=== PATIENT | female | born 1985 | race American Indian/Alaskan Native ===

== ENCOUNTER 2019-02-04 21:50 | Emergency (ER) | payer SELFPAY ==
--- NOTE | 2019-02-04 22:36 | Emergency Department Report ---
Blank Doc - Documentation Documentation: 33-year-old female that presents with left knee pain. This initial assessment/diagnostic orders/clinical plan/treatment(s) is/are subject to change based on patient's health status, clinical progression and re- assessment by fellow clinical providers in the ED. Further treatment and workup at subsequent clinical providers discretion. Patient/guardians urged not to elope from the ED as their condition may be serious if not clinically assessed and managed. Initial orders include: 1- Patient sent to [facility] for further evaluation and treatment 2- xrays
--- NOTE | 2019-02-05 00:09 | XRay Report ---
LEFT KNEE 3 VIEW(S) INDICATION / CLINICAL INFORMATION: knee pain COMPARISON: None available. FINDINGS: BONES / JOINT(S): No acute fracture or subluxation. No significant arthritis. Small suprapatellar sheng nt effusion. SOFT TISSUES: Mild anterior soft tissue swelling. ADDITIONAL FINDINGS: None. Signer Name: Kimberlee Dietz MD Signed: 02/05/2019 12:05 AM Workstation Name: [id number]
--- NOTE | 2019-02-05 01:34 | Emergency Department Report ---
ED Extremity Problem HPI - General Chief complaint: Extremity Injury, Lower Stated complaint: L LEG PAIN/FACIAL SWELLING Time Seen by Provider: 02/04/19 22:35 Source: patient Mode of arrival: Ambulatory Limitations: Physical Limitation - History of Present Illness Initial comments: Patient is a 33-year-old -Citizen Of [place] female who presents to the ED with complaints of acute onset persistent severe left knee pain and swelling after she twisted her left knee when playing with her child about 6 hours ago. Patient states that the swelling and pain of the left knee has worsened. Patient states that she has also had persistent painful swelling left maxillary and mandibular jaw pain that radiates to the left ear due to swollen gums and premolar and molar toothaches for the last 1 week. Patient denies fever, chills, nausea, vomiting, dizziness, headache, chest pain, shortness of breath, sore throat, fall, traumatic injury or low back pain. MD Complaint: extremity pain (left knee), joint swelling (left knee), other (dental and gum pain) -: Sudden, hour(s) (6) Location: left, lower extremity (knee), knee (left) History of Same: No -: Yes arthralgia, No fever, No associated dyspnea, No associated chest pain Radiation: none Severity scale (0 -10): 7 Quality: aching, sharp, constant Consistency: constant Improves with: nothing Worsens with: weight bearing, walking, exertion, palpation Associated Symptoms: denies other symptoms, myalgias, arthralgias. denies: chest pain, shortness of breath, rash, other - Related Data Previous Rx's Medication Instructions Recorded Last Taken Type Acetaminophen/Codeine [Tylenol 1 tab PO Q6H PRN #12 tab 02/05/19 Unknown Rx /Codeine # 3 tab] Cyclobenzaprine [Flexeril] 10 mg PO Q8H PRN #15 tablet 02/05/19 Unknown Rx Ketorolac [Toradol] 10 mg PO Q8H PRN #20 tablet 02/05/19 Unknown Rx Penicillin V Potassium 500 mg PO Q6H #40 tablet 02/05/19 Unknown Rx Allergies Allergy/AdvReac Type Severity Reaction Status Date / Time No Known Allergies Allergy Unverified 02/04/19 22:39 ED Review of Systems ROS: Stated complaint: L LEG PAIN/FACIAL SWELLING Other details as noted in HPI Constitutional: denies: chills, fever Eyes: denies: eye pain, eye discharge, vision change ENT: dental pain, other (left mandibular and maxillary gum swelling). denies: ear pain, throat pain Respiratory: denies: cough, shortness of breath, wheezing Cardiovascular: denies: chest pain, palpitations Endocrine: no symptoms reported Gastrointestinal: denies: abdominal pain, nausea, diarrhea Genitourinary: denies: urgency, dysuria, discharge Musculoskeletal: joint swelling (left knee swelling), arthralgia. denies: back pain Skin: denies: rash, lesions Neurological: denies: headache, weakness, paresthesias Psychiatric: denies: anxiety, depression Hematological/Lymphatic: denies: easy bleeding, easy bruising ED Past Medical Hx - Past Medical History Previous Medical History?: No - Surgical History Additional Surgical History: c sect 5 - Social History Smoking Status: Never Smoker Substance Use Type: Alcohol, Marijuana - Medications Home Medications: Home Medications Medication Instructions Recorded Confirmed Last Taken Type Acetaminophen/Codeine [Tylenol 1 tab PO Q6H PRN #12 tab 02/05/19 Unknown Rx /Codeine # 3 tab] Cyclobenzaprine [Flexeril] 10 mg PO Q8H PRN #15 tablet 02/05/19 Unknown Rx Ketorolac [Toradol] 10 mg PO Q8H PRN #20 tablet 02/05/19 Unknown Rx Penicillin V Potassium 500 mg PO Q6H #40 tablet 02/05/19 Unknown Rx ED Physical Exam - General Limitations: Physical Limitation General appearance: alert, in no apparent distress - Head Head exam: Present: atraumatic, normocephalic, normal inspection - Eye Eye exam: Present: normal appearance, PERRL, EOMI Pupils: Present: normal accommodation - ENT ENT exam: Present: normal exam, mucous membranes moist, TM's normal bilaterally, normal external ear exam, other (swollen tender left maxillary and mandibular gums with tender premolar and molar teeth) - Neck Neck exam: Present: normal inspection, full ROM, lymphadenopathy - Respiratory Respiratory exam: Present: normal lung sounds bilaterally. Absent: respiratory distress, wheezes, rhonchi, stridor, chest wall tenderness, accessory muscle use, decreased breath sounds - Cardiovascular Cardiovascular Exam: Present: regular rate, normal rhythm, normal heart sounds. Absent: systolic murmur, diastolic murmur, rubs, gallop - GI/Abdominal GI/Abdominal exam: Present: soft, normal bowel sounds. Absent: tenderness, guarding, rebound, hyperactive bowel sounds, hypoactive bowel sounds - Extremities Exam Extremities exam: Present: normal inspection, full ROM, tenderness (palpable left knee tenderness with mild swelling), normal capillary refill - Back Exam Back exam: Present: normal inspection, full ROM. Absent: tenderness, CVA tenderness (R), CVA tenderness (L), muscle spasm, paraspinal tenderness - Neurological Exam Neurological exam: Present: alert, oriented X3, CN II-XII intact, normal gait, reflexes normal - Psychiatric Psychiatric exam: Present: normal affect, normal mood - Skin Skin exam: Present: warm, dry, intact, normal color. Absent: rash ED Course Vital Signs 02/04/19 02/05/19 21:59 01:56 Temperature 98.2 F 98.6 F Pulse Rate 89 89 Respiratory 18 16 Rate Blood Pressure 118/86 Blood Pressure 127/83 [Right] O2 Sat by Pulse 99 100 Oximetry ED Medical Decision Making - Radiology Data Radiology results: report reviewed, image reviewed Left knee x-ray shows no acute fractures or subluxations, except small left knee effusion and mild swelling. - Medical Decision Making This is a 33-year-old female who presented to the ED with left knee pain after twisting the left knee when playing with her son about 6 hours ago. In the ED, patient is alert and oriented 3 and is not in distress. Patient was treated for pain and left knee x-ray shows no acute fractures or subluxation but a small left knee effusion with mild soft tissue swelling. The left knee was splinted with Florian wrap and patient discharged home on medications. Patient was advised to follow-up with her primary care physician in 7-10 days for reevaluation. Patient was advised to return to the ED immediately if symptoms get worse. - Differential Diagnosis left knee sprain; left knee muscle strain; dental abscess; gingivitis Critical care attestation.: If time is entered above; I have spent that time in minutes in the direct care of this critically ill patient, excluding procedure time. ED Disposition Clinical Impression: Dental abscess, Acute gingivitis Sprain of left knee Qualifiers: Encounter type: initial encounter Involved ligament of knee: unspecified ligament Qualified Code(s): S83.92XA - Sprain of unspecified site of left knee, initial encounter Disposition: DC-01 TO HOME OR SELFCARE Is pt being admited?: No Does the pt Need Aspirin: No Condition: Stable Instructions: Knee Sprain (ED), Dental Abscess (ED), Gingivitis (ED) Additional Instructions: Take medications with food, drink plenty of fluids and follow-up with your primary care physician in 7-10 days for reevaluation. Return to the ED immediately symptoms get worse. Prescriptions: Cyclobenzaprine [Flexeril] 10 mg PO Q8H PRN #15 tablet PRN Reason: Muscle Spasm Penicillin V Potassium 500 mg PO Q6H #40 tablet Ketorolac [Toradol] 10 mg PO Q8H PRN #20 tablet PRN Reason: Pain Acetaminophen/Codeine [Tylenol /Codeine # 3 tab] 1 tab PO Q6H PRN #12 tab PRN Reason: Pain , Severe (7-10) Referrals: PRIMARY CARE, [Primary Care Provider] - 3-5 Days Forms: Work/School Release Form(ED) Time of Disposition: 01:32 Print Language: TAJIK
[2019-02-05 01:58] VITALS: BP 127/83
== END 2019-02-05 01:57 | disposition home or self-care (01) ==
LOC: ED 21:50
DX: S83.92XA Sprain of unspecified site of left knee, initial encounter (principal); K05.00 Acute gingivitis, plaque induced; K04.7 Periapical abscess without sinus; F12.10 Cannabis abuse, uncomplicated; Z79.899 Other long term (current) drug therapy; X50.1XXA Overexertion from prolonged static or awkward postures, initial encounter; Y93.89 Activity, other specified; Y92.89 Other specified places as the place of occurrence of the external cause; Y99.8 Other external cause status